=== PATIENT | male | born 1975 | race Caucasian/White ===

== ENCOUNTER 2017-08-05 07:29 | Emergency (ER) | payer SELFPAY ==
--- NOTE | 2017-08-05 08:03 | ER ---
Nurse's Notes [facility] Name: Grayson Liz Age: 41 yrs Sex: Male : 1975 Arrival Date: 08/05/2017 Time: 07:31 Bed 15 Private MD: Diagnosis: Acute Otitis Externa Presentation: 08/05 07:47 Presenting complaint: Patient states: has had cough X 1 month, and right ear has been iw leaking pus and blood for about 6 weeks, ear initially had pain but now denies pain, states he can't hear out of it. Transition of care: patient was not received from another setting of care. Onset of symptoms was June 2017. Initial Sepsis Screen: Does the patient meet any 2 criteria? No. Patient's initial sepsis screen is negative. Does the patient have a suspected source of infection? No. Patient's initial sepsis screen is negative. Care prior to arrival: None. 07:47 Method Of Arrival: Ambulatory iw 07:47 Acuity: LAURA 4 iw Historical: - Allergies: 07:50 NKA; iw - Home Meds: 07:50 Adderall XR Oral [Active]; iw - PMHx: 07:50 None; iw - PSHx: 07:50 None; iw - Immunization history:: Adult Immunizations up to date. - Social history:: Smoking status: Patient uses tobacco products, smokes one-half pack cigarettes per day. Screenin:40 Abuse screen: Denies threats or abuse. Nutritional screening: No deficits noted. em Tuberculosis screening: No symptoms or risk factors identified. Fall Risk None identified. Assessment: 08:00 General: Appears in no apparent distress. comfortable, Behavior is calm, cooperative. em Pain: Complains of pain in right ear Pain currently is 3 out of 10 on a pain scale. Neuro: Level of Consciousness is awake, alert, obeys commands, Oriented to person, place, time, situation. Cardiovascular: Capillary refill < 3 seconds Patient's skin is warm and dry. Respiratory: Airway is patent Respiratory effort is even, unlabored, Respiratory pattern is regular, symmetrical. GI: Abdomen is flat. : No signs and/or symptoms were reported regarding the genitourinary system. EENT: Ear canal clear on right ear. Derm: Skin is intact, Skin is pink, warm \T\ dry. Musculoskeletal: Range of motion: intact in all extremities. 08:20 Reassessment: Patient appears in no apparent distress at this time. I agree with above iw assessment by Akil Grant LVN. Vital Signs: 07:50 BP 133 / 99; Pulse 96; Resp 18 S; Temp 98.2; Pulse Ox 97% on R/A; Weight 81.65 kg; iw Height 5 ft. 10 in. (177.80 cm); Pain 2/10; 08:35 BP 122 / 81; Pulse 76; Resp 16; Temp 98.0; Pulse Ox 99% on R/A; Pain 2/10; em 07:50 Body Mass Index 25.83 (81.65 kg, 177.80 cm) iw ED Course: 07:31 Patient arrived in ED. rg4 07:42 Eliseo De Luna PA is PHCP. jr8 07:42 Viral Clarke MD is Attending Physician. jr8 07:43 Akil Grant LVN is Primary Nurse. em 07:49 Triage completed. iw 07:50 Arm band placed on. iw 08:00 Patient has correct armband on for positive identification. em 08:02 Xin Santiago MD is Referral Physician. jr8 08:40 No provider procedures requiring assistance completed. Patient did not have IV access em during this emergency room visit. Administered Medications: No medications were administered Outcome: 08:02 Discharge ordered by . jr8 08:40 Discharged to home ambulatory. em 08:40 Condition: good 08:40 Discharge instructions given to patient, Instructed on discharge instructions, follow up and referral plans. medication usage, Demonstrated understanding of instructions, follow-up care, medications, Prescriptions given X 1. 08:41 Patient left the ED. em Signatures: Akil Grant LVN LVN em Pat Barajas, RN RN iw Eliseo De Luna PA PA jrMirna Chinchilla rg4
--- NOTE | 2017-08-05 08:03 | EDPHYS ---
Physician Documentation [facility] Name: Grayson Liz Age: 41 yrs Sex: Male : 1975 Arrival Date: 08/05/2017 Time: 07:31 Bed 15 Private MD: ED Physician Viral Clarke HPI: 08/05 07:51 This 41 yrs old Male presents to ER via Ambulatory with complaints of Ear jr8 Pain. 07:51 The patient presents with drainage, that is purulent, pain, swelling, tenderness. The jr8 complaints affect the right ear. Onset: The symptoms/episode began/occurred gradually, 7 week(s) ago, and became worse and became persistent. Modifying factors: The symptoms are alleviated by nothing, the symptoms are aggravated by touching. Associated signs and symptoms: The patient has no apparent associated signs or symptoms. Severity of symptoms: At their worst the symptoms were mild in the emergency department the symptoms are unchanged. The patient has not experienced similar symptoms in the past. The patient has not recently seen a physician. Historical: - Allergies: 07:50 NKA; iw - Home Meds: 07:50 Adderall XR Oral [Active]; iw - PMHx: 07:50 None; iw - PSHx: 07:50 None; iw - Immunization history:: Adult Immunizations up to date. - Social history:: Smoking status: Patient uses tobacco products, smokes one-half pack cigarettes per day. ROS: 07:51 Eyes: Negative for injury, pain, redness, and discharge, Neck: Negative for injury, jr8 pain, and swelling, Cardiovascular: Negative for chest pain, palpitations, and edema, Respiratory: Negative for shortness of breath, cough, wheezing, and pleuritic chest pain, Abdomen/GI: Negative for abdominal pain, nausea, vomiting, diarrhea, and constipation, Back: Negative for injury and pain, MS/Extremity: Negative for injury and deformity, Skin: Negative for injury, rash, and discoloration, Neuro: Negative for headache, weakness, numbness, tingling, and seizure. 07:51 ENT: Positive for drainage from ear(s), ear pain. Exam: 07:51 Eyes: Pupils equal round and reactive to light, extra-ocular motions intact. Lids and jr8 lashes normal. Conjunctiva and sclera are non-icteric and not injected. Cornea within normal limits. Periorbital areas with no swelling, redness, or edema. Neck: Trachea midline, no thyromegaly or masses palpated, and no cervical lymphadenopathy. Supple, full range of motion without nuchal rigidity, or vertebral point tenderness. No Meningismus. Cardiovascular: Regular rate and rhythm with a normal S1 and S2. No gallops, murmurs, or rubs. Normal PMI, no JVD. No pulse deficits. Respiratory: Lungs have equal breath sounds bilaterally, clear to auscultation and percussion. No rales, rhonchi or wheezes noted. No increased work of breathing, no retractions or nasal flaring. Abdomen/GI: Soft, non-tender, with normal bowel sounds. No distension or tympany. No guarding or rebound. No evidence of tenderness throughout. Back: No spinal tenderness. No costovertebral tenderness. Full range of motion. Skin: Warm, dry with normal turgor. Normal color with no rashes, no lesions, and no evidence of cellulitis. MS/ Extremity: Pulses equal, no cyanosis. Neurovascular intact. Full, normal range of motion. Neuro: Awake and alert, GCS 15, oriented to person, place, time, and situation. Cranial nerves II-XII grossly intact. Motor strength 5/5 in all extremities. Sensory grossly intact. Cerebellar exam normal. Normal gait. 07:51 ENT: External ear(s): are unremarkable, Ear canal(s): purulent discharge, that is moderate, in the right canal, swelling, that is moderate, of the right canal, TM's: not visable, because of discharge, Examination of the other ear shows no obvious abnormality, Nose: External nose: no obvious acute abnormality, Nasal septum: is midline, Nasal mucosa: moist, Turbinates: are normal, Mouth: Lips: moist, Oral mucosa: pink and intact, moist, Gums: pink, Tongue: is moist, Posterior pharynx: Airway: patent, Tonsils: are normal in appearance, no enlargement, no erythema, no exudate, no ulcerations, Uvula: midline, non-edematous, no erythema, swelling, is not appreciated, erythema, is not appreciated. Vital Signs: 07:50 BP 133 / 99; Pulse 96; Resp 18 S; Temp 98.2; Pulse Ox 97% on R/A; Weight 81.65 kg; iw Height 5 ft. 10 in. (177.80 cm); Pain 2/10; 08:35 BP 122 / 81; Pulse 76; Resp 16; Temp 98.0; Pulse Ox 99% on R/A; Pain 2/10; em 07:50 Body Mass Index 25.83 (81.65 kg, 177.80 cm) iw MDM: 07:42 Patient medically screened. jr8 07:51 Data reviewed: vital signs, nurses notes, and as a result, I will discharge patient. jr8 Data interpreted: Pulse oximetry: on room air is 97 %. Interpretation: normal. Counseling: I had a detailed discussion with the patient and/or guardian regarding: the historical points, exam findings, and any diagnostic results supporting the discharge/admit diagnosis, the need for outpatient follow up, an ENT specialist, to return to the emergency department if symptoms worsen or persist or if there are any questions or concerns that arise at home. Administered Medications: No medications were administered Disposition: 08/05/17 08:02 Discharged to Home. Impression: Acute Otitis Externa . - Condition is Stable. - Discharge Instructions: Otitis Externa. - Prescriptions for Cortisporin 3.5- 10,000-1 mg/mL-unit/mL-% Otic solution - instill 4 drop by OTIC route 4 times per day for 7 days; 1 bottle. - Medication Reconciliation Form, Thank You Letter, Antibiotic Education, Prescription Opioid Use form. - Follow up: Xin Santiago MD; When: 1 week; Reason: Recheck today's complaints, Continuance of care, Re-evaluation by your physician. - Problem is new. - Symptoms have improved. Addendum: 08/07/2017 08:53 Co-signature as Attending Physician, Viral Clarke MD I agree with the assessment and c tirado plan of care. Signatures: Viral Clarke MD MD cha Munoz, Edgar, FINISH SPECIALIST FINISH SPECIALIST em Pat Barajas, ROHAN RN iw Eliseo De Luna PA PA jr8 Corrections: (The following items were deleted from the chart) 08/05 08:41 08:02 08/05/2017 08:02 Discharged to Home. Impression: Acute Otitis Externa . Condition em is Stable. Forms are Medication Reconciliation Form, Thank You Letter, Antibiotic Education, Prescription Opioid Use. Follow up: Xin Santiago; When: 1 week; Reason: Recheck today's complaints, Continuance of care, Re-evaluation by your physician. Problem is new. Symptoms have improved. jr8
== END 2017-08-05 08:41 | disposition home or self-care (01) ==
LOC: ER 07:29
DX: H60.509 Unspecified acute noninfective otitis externa, unspecified ear (principal); F17.210 Nicotine dependence, cigarettes, uncomplicated
CPT/HCPCS: 99282

== ENCOUNTER 2018-04-09 12:10 | Emergency (ER) | payer SELFPAY ==
[2018-04-09] MEDS ORDERED: BUPIVACAINE 0.5% PF 10 ML VIAL ONE (12:28)
[2018-04-09] MEDS ORDERED: LIDOCAINE 1% W/EPI 1:100,000 MDV 50 ML VIAL ONE (12:28)
--- NOTE | 2018-04-09 12:36 | EDPHYS ---
Physician Documentation [facility] Name: Grayson Liz Age: 42 yrs Sex: Male : 1975 Arrival Date: 04/09/2018 Time: 12:12 Bed 16 Private MD: None, None ED Physician Benny Wells HPI: 04/09 12:30 This 42 yrs old Male presents to ER via Ambulatory with complaints of dental ps1 pain. 12:30 patient has 2 fractured teeth on the right mandible. Atraumatic. Pain rated as moderate ps1 to severe. No abscess but some gingival swelling. No fever. Has not been able to see a dentist. . Historical: - Allergies: 12:15 NKA; hj - Home Meds: 12:15 Adderall XR Oral [Active]; hj - PMHx: 12:15 None; hj - PSHx: 12:15 None; hj - Immunization history:: Adult Immunizations not immunized. - Social history:: Smoking status: Patient uses tobacco products, Patient uses alcohol. - Ebola Screening: : Patient negative for fever greater than or equal to 101.5 degrees Fahrenheit, and additional compatible Ebola Virus Disease symptoms Patient denies exposure to infectious person Patient denies travel to an Ebola-affected area in the 21 days before illness onset. ROS: 12:30 Constitutional: Negative for fever, chills, and weight loss, Eyes: Negative for injury, ps1 pain, redness, and discharge, Cardiovascular: Negative for chest pain, palpitations, and edema, Respiratory: Negative for shortness of breath, cough, wheezing, and pleuritic chest pain, Abdomen/GI: Negative for abdominal pain, nausea, vomiting, diarrhea, and constipation, Back: Negative for injury and pain, MS/Extremity: Negative for injury and deformity, Skin: Negative for injury, rash, and discoloration, Neuro: Negative for headache, weakness, numbness, tingling, and seizure. 12:30 ENT: Positive for dental pain. Exam: 12:30 Constitutional: This is a well developed, well nourished patient who is awake, alert, ps1 and in no acute distress. Head/Face: Normocephalic, atraumatic. Eyes: Pupils equal round and reactive to light, extra-ocular motions intact. Lids and lashes normal. Conjunctiva and sclera are non-icteric and not injected. Cardiovascular: Regular rate and rhythm. No gallops, murmurs, or rubs. Normal PMI, no JVD. No pulse deficits. Respiratory: Lungs have equal breath sounds bilaterally, clear to auscultation and percussion. No rales, rhonchi or wheezes noted. No increased work of breathing, no retractions or nasal flaring. Abdomen/GI: Soft, non-tender, with normal bowel sounds. No distension or tympany. No guarding or rebound. No evidence of tenderness throughout. Skin: Warm, dry with normal turgor. Normal color with no rashes, no lesions, and no evidence of cellulitis. 12:30 ENT: Mouth: Lips: normal, Oral mucosa: pink and intact, Gums: reddened, swollen, on the lower right first bicuspid and lower right second bicuspid, abscess, is not appreciated. Vital Signs: 12:16 BP 142 / 80; Pulse 95; Resp 18; Temp 98.1(TE); Pulse Ox 100% on R/A; Weight 81.65 kg; hj Height 5 ft. 9 in. (175.26 cm); Pain 10/10; 12:52 BP 144 / 78; Pulse 88; Resp 17; Pulse Ox 100% on R/A; Pain 5/10; tw2 12:16 Body Mass Index 26.58 (81.65 kg, 175.26 cm) hj Procedures: 12:30 Nerve block: (dental) of right inferior alveolar nerve, periapical block, (lingual and ps1 long buccal). Medication: Lidocaine 1% with epinephrine, Marcaine 0.5%, Amount: 6 mls were injected, Effect: the patient has resolution of the pain, Performed by Benny Wells MD Patient tolerated well. MDM: 12:30 Patient medically screened. ps1 12:30 Data reviewed: vital signs, nurses notes, and as a result, I will discharge patient. ps1 Special discussion: Based on the presenting symptoms and work-up in the emergency department, I discussed in detail the need to arrange with the PCP or specialist an outpatient procedure, dental extraction. Based on the history and exam findings, there is no indication for further emergent testing or inpatient evaluation. I discussed with the patient/guardian the need to see a dentist for further evaluation of the symptoms. Administered Medications: 12:25 Drug: Marcaine (0.5 %) 1 mg Volume: 10 ml; Route: Infiltration; tw2 12:51 Follow up: Response: No adverse reaction tw2 12:25 Drug: Lidocaine-Epinephrine -1%: (1:100,000) 20 ml Volume: 20 ml; Route: Infiltration; tw2 12:52 Follow up: Response: No adverse reaction tw2 Disposition: 04/09/18 12:35 Discharged to Home. Impression: Periodontal disease, Dental pain, Fractured teeth. - Condition is Stable. - Discharge Instructions: Dental Caries, Adult. - Prescriptions for chlorhexidine gluconate 0.12 % Mucous Membrane mouthwash - place 15 milliliter by MUCOUS MEMBRANE route 2 times per day after brushing teeth, swish in mouth for 30 seconds then spit out; 1 bottle. Clindamycin HCl 300 mg Oral Capsule - take 1 capsule by ORAL route every 6 hours for 10 days; 40 capsule. Tylenol- Codeine #3 300-30 mg Oral Tablet - take 2 tablet by ORAL route every 6 hours As needed; 30 tablet. Zofran 4 mg Oral Tablet - take 1 tablet by ORAL route every 12 hours As needed; 20 tablet. - Work release form, Medication Reconciliation Form, Thank You Letter, Antibiotic Education, Prescription Opioid Use form. - Follow up: Private Physician; Reason: Further diagnostic work-up, Recheck today's complaints, Continuance of care, Re-evaluation by your physician. Follow up: Emergency Department; When: As needed; Reason: Fever > 102 F, Worsening of condition. - Problem is an ongoing problem. - Symptoms have worsened. Signatures: Brandon Boles RN RN hj Liliana Galvan RN RN tw2 Benny Wells MD MD ps1 Corrections: (The following items were deleted from the chart) 12:53 12:35 04/09/2018 12:35 Discharged to Home. Impression: Periodontal disease; Dental tw2 pain; Fractured teeth. Condition is Stable. Forms are Medication Reconciliation Form, Thank You Letter, Antibiotic Education, Prescription Opioid Use. Follow up: Private Physician; Reason: Further diagnostic work-up, Recheck today's complaints, Continuance of care, Re-evaluation by your physician. Follow up: Emergency Department; When: As needed; Reason: Fever > 102 F, Worsening of condition. Problem is an ongoing problem. Symptoms have worsened. ps1
--- NOTE | 2018-04-09 12:36 | ER ---
Nurse's Notes [facility] Name: Grayson Liz Age: 42 yrs Sex: Male : 1975 Arrival Date: 04/09/2018 Time: 12:12 Bed 16 Private MD: None, None Diagnosis: Periodontal disease;Dental pain;Fractured teeth Presentation: 04/09 12:13 Presenting complaint: Patient states: i had 3 weeks of tooth ache and tooth came out hj (tooth R bottom part), and the swelling started 2 weeks ago; took ibuprofen an hour [employer]:. Transition of care: patient was not received from another setting of care. Onset of symptoms was April 09, 2018. Risk Assessment: Do you want to hurt yourself or someone else? Patient reports no desire to harm self or others. Initial Sepsis Screen: Does the patient meet any 2 criteria? No. Patient's initial sepsis screen is negative. Does the patient have a suspected source of infection? Yes:. Care prior to arrival: None. 12:13 Method Of Arrival: Ambulatory 12:13 Acuity: LAURA 4 hj Triage Assessment: 12:15 General: Appears in no apparent distress. uncomfortable, Behavior is calm, cooperative, hj appropriate for age. Pain: Complains of pain in ttoth, face. Historical: - Allergies: 12:15 NKA; hj - Home Meds: 12:15 Adderall XR Oral [Active]; hj - PMHx: 12:15 None; hj - PSHx: 12:15 None; hj - Immunization history:: Adult Immunizations not immunized. - Social history:: Smoking status: Patient uses tobacco products, Patient uses alcohol. - Ebola Screening: : Patient negative for fever greater than or equal to 101.5 degrees Fahrenheit, and additional compatible Ebola Virus Disease symptoms Patient denies exposure to infectious person Patient denies travel to an Ebola-affected area in the 21 days before illness onset. Screenin:16 Abuse screen: Denies threats or abuse. Denies injuries from another. Nutritional hj screening: No deficits noted. Tuberculosis screening: No symptoms or risk factors identified. Fall Risk None identified. Assessment: 12:15 General: Appears in no apparent distress. Behavior is appropriate for age. Neuro: Level tw2 of Consciousness is awake, alert, obeys commands, Oriented to person, place, time, situation. Cardiovascular: Capillary refill < 3 seconds Patient's skin is warm and dry. Respiratory: Airway is patent Respiratory effort is even, unlabored, Respiratory pattern is regular, symmetrical. GI: No signs and/or symptoms were reported involving the gastrointestinal system. : No signs and/or symptoms were reported regarding the genitourinary system. EENT: Reports dental pain. Musculoskeletal: Range of motion: intact in all extremities. 12:52 Reassessment: Patient appears in no apparent distress at this time. Patient and/or tw2 family updated on plan of care and expected duration. Pain level reassessed. Patient is alert, oriented x 3, equal unlabored respirations, skin warm/dry/pink. Patient states feeling better. Vital Signs: 12:16 BP 142 / 80; Pulse 95; Resp 18; Temp 98.1(TE); Pulse Ox 100% on R/A; Weight 81.65 kg; hj Height 5 ft. 9 in. (175.26 cm); Pain 10/10; 12:52 BP 144 / 78; Pulse 88; Resp 17; Pulse Ox 100% on R/A; Pain 5/10; tw2 12:16 Body Mass Index 26.58 (81.65 kg, 175.26 cm) ED Course: 12:12 Patient arrived in ED. mr 12:12 None, None is Private Physician. mr 12:13 Benny Wells MD is Attending Physician. ps1 12:15 Triage completed. hj 12:16 Arm band placed on right wrist. hj 12:16 Patient has correct armband on for positive identification. Bed in low position. Call hj light in reach. Side rails up X 1. 12:25 No provider procedures requiring assistance completed. Patient did not have IV access tw2 during this emergency room visit. 12:34 Liliana Galvan, RN is Primary Nurse. tw2 Administered Medications: 12:25 Drug: Marcaine (0.5 %) 1 mg Volume: 10 ml; Route: Infiltration; tw2 12:51 Follow up: Response: No adverse reaction tw2 12:25 Drug: Lidocaine-Epinephrine -1%: (1:100,000) 20 ml Volume: 20 ml; Route: Infiltration; tw2 12:52 Follow up: Response: No adverse reaction tw2 Outcome: 12:35 Discharge ordered by . ps1 12:53 Discharged to home ambulatory. tw2 12:53 Condition: stable 12:53 Discharge instructions given to patient, Instructed on discharge instructions, follow up and referral plans. no drinking with medication, no driving heavy equipment, medication usage, Demonstrated understanding of instructions, follow-up care, medications, Prescriptions given X 4. 12:53 Patient left the ED. tw2 Signatures: Capo Monse BolesBrandon RN RN hj Liliana Galvan RN RN tw2 Benny Wells MD MD ps1 Corrections: (The following items were deleted from the chart) 12:17 12:16 Pulse 95bpm; Resp 18bpm; Pulse Ox 100% RA; Temp 98.1F Temporal; 81.65 kg; Height hj 5 ft. 9 in.; BMI: 26.5; Pain 10/10; hj
== END 2018-04-09 12:53 | disposition home or self-care (01) ==
LOC: ER 12:10
PROC: 3E0T3BZ Introduction of Anesthetic Agent into Peripheral Nerves and Plexi, Percutaneous Approach (ICD-10-PCS; principal; 2018-04-09)
DX: K05.6 Periodontal disease, unspecified (principal); S02.5XXA Fracture of tooth (traumatic), initial encounter for closed fracture; Z72.0 Tobacco use
CPT/HCPCS: 99283

== ENCOUNTER 2018-08-22 08:43 | Inpatient (IN) | payer SELFPAY ==
--- NOTE | 2018-08-22 09:27 | RAD REPORT ---
EXAM DESCRIPTION: RAD - Chest Single View - 08/22/2018 9:16 am CLINICAL HISTORY: MD nuñez Chest pain. COMPARISON: No comparisons FINDINGS: Portable technique limits examination quality. The lungs appear mildly emphysematous but clear. The heart is normal in size. No displaced fractures. IMPRESSION: Mild COPD.
[2018-08-22] MEDS ORDERED: ONDANSETRON 4 MG/2 ML VIAL ONE (09:33)
[2018-08-22 09:34] LABS: Absolute Lymphocytes (CBC) 1.1 K/uL (0.7-4.9); Absolute Monocytes 0.9 K/uL (0.1-1.3); Absolute Neutrophil 19.1 K/uL (1.8-8.0); Basophils % 0.2 % (0-1.3); Hematocrit 57.6 % (39.6-49.0); Lymphocytes % 5.2 % (15.3-44.8); MPV 7.6 fL (7.6-11.3); Monocytes % 4.4 % (3.3-12.3); RBC Red Blood Cell Count 6.42 M/uL (4.33-5.43)
[2018-08-22] MEDS ORDERED: NA CHLORIDE 0.9% 2,000 ML ONE ×2 (09:34→10:45)
[2018-08-22 09:42] LABS: Protime INR 0.99
[2018-08-22 10:08] LABS: ALT/SGPT 32 U/L (12-78); AST/SGOT 19 U/L (15-37); Albumin 5.7 g/dL (3.4-5.0); Alkaline Phosphatase 124 U/L (45-117); BUN Blood Urea Nitrogen 51 mg/dL (7-18); Bicarbonate 31 mmol/L (21-32); Bilirubin Direct 0.1 mg/dL (0-0.2); Bilirubin Total 0.5 mg/dL (0.2-1.0); Blood Morphology Comment NOT SEEN (NOT SEEN); Glucose Level 162 mg/dL (74-106); NT PRO-BNP 191 pg/mL (<125); Platelet Estimate ADEQ; Potassium 4.1 mmol/L (3.5-5.1); Sodium Level 138 mmol/L (136-145); Troponin (Emerg Dept Use Only) < 0.02 ng/mL (0.0-0.045)
[2018-08-22 10:13] LABS: Magnesium 3.6 mg/dL (1.8-2.4)
--- NOTE | 2018-08-22 10:31 | EDPHYS ---
Physician Documentation [facility] Name: Grayson Liz Age: 42 yrs Sex: Male : 1975 Arrival Date: 08/22/2018 Time: 08:45 Bed 14 Private MD: None, None ED Physician Viral Clarke HPI: 08/22 09:27 This 42 yrs old Male presents to ER via Ambulatory with complaints of sumeet Vomiting, Muscle spasms. 09:27 The patient presents to the emergency department with nausea, vomiting, that is sumeet continuous. Onset: The symptoms/episode began/occurred 2 day(s) ago. Possible causes: unknown. The symptoms are aggravated by nothing. The symptoms are alleviated by nothing. Associated signs and symptoms: The patient has no apparent associated signs or symptoms. The patient has not experienced similar symptoms in the past. Historical: - Allergies: 08:55 NKA; aa5 - Home Meds: 08:55 Adderall XR Oral [Active]; aa5 - PMHx: 08:55 ADD/ADHD; aa5 - PSHx: 08:55 Hernia repair; Tonsillectomy; aa5 - Immunization history:: Adult Immunizations up to date. - Social history:: Smoking status: Patient uses tobacco products, smokes one-half pack cigarettes per day. - Ebola Screening: : No symptoms or risks identified at this time. ROS: 09:29 Constitutional: Negative for fever, chills, and weight loss, Eyes: Negative for injury, sumeet pain, redness, and discharge, ENT: Negative for injury, pain, and discharge, Neck: Negative for injury, pain, and swelling, Cardiovascular: Negative for chest pain, palpitations, and edema, Respiratory: Negative for shortness of breath, cough, wheezing, and pleuritic chest pain, Back: Negative for injury and pain, : Negative for injury, bleeding, discharge, and swelling, MS/Extremity: Negative for injury and deformity, Skin: Negative for injury, rash, and discoloration, Neuro: Negative for headache, weakness, numbness, tingling, and seizure, Psych: Negative for depression, anxiety, suicide ideation, homicidal ideation, and hallucinations, Allergy/Immunology: Negative for hives, rash, and allergies, Endocrine: Negative for neck swelling, polydipsia, polyuria, polyphagia, and marked weight changes, Hematologic/Lymphatic: Negative for swollen nodes, abnormal bleeding, and unusual bruising. 09:29 Abdomen/GI: Positive for nausea and vomiting. Exam: 09:29 Constitutional: This is a well developed, well nourished patient who is awake, alert, sumeet and in no acute distress. Head/Face: Normocephalic, atraumatic. Eyes: Pupils equal round and reactive to light, extra-ocular motions intact. Lids and lashes normal. Conjunctiva and sclera are non-icteric and not injected. Cornea within normal limits. Periorbital areas with no swelling, redness, or edema. Neck: Trachea midline, no thyromegaly or masses palpated, and no cervical lymphadenopathy. Supple, full range of motion without nuchal rigidity, or vertebral point tenderness. No Meningismus. Chest/axilla: Normal chest wall appearance and motion. Nontender with no deformity. No lesions are appreciated. Cardiovascular: Regular rate and rhythm with a normal S1 and S2. No gallops, murmurs, or rubs. Normal PMI, no JVD. No pulse deficits. Respiratory: Lungs have equal breath sounds bilaterally, clear to auscultation and percussion. No rales, rhonchi or wheezes noted. No increased work of breathing, no retractions or nasal flaring. Abdomen/GI: Soft, non-tender, with normal bowel sounds. No distension or tympany. No guarding or rebound. No evidence of tenderness throughout. Back: No spinal tenderness. No costovertebral tenderness. Full range of motion. Male : Normal genitalia with no discharge or lesions. Skin: Warm, dry with normal turgor. Normal color with no rashes, no lesions, and no evidence of cellulitis. 09:29 ENT: Mouth: Oral mucosa: dry, Gums: normal with healthy appearance, Tongue: is normal, abscess, is not appreciated, drooling, is not appreciated. Vital Signs: 08:55 BP 125 / 94; Pulse 98; Resp 18 S; Temp 97.8(O); Pulse Ox 96% on R/A; Weight 79.38 kg aa5 (R); Height 5 ft. 11 in. (180.34 cm) (R); Pain 6/10; 10:12 BP 135 / 81; Pulse 78; Resp 18 S; Pulse Ox 96% on R/A; aa5 11:30 BP 111 / 78; Pulse 80; Resp 16 S; Pulse Ox 96% on R/A; Pain 3/10; aa5 08:55 Body Mass Index 24.41 (79.38 kg, 180.34 cm) [facility] MDM: 08:59 Patient medically screened. [facility] 09:32 Data reviewed: vital signs, nurses notes, lab test result(s), EKG, radiologic studies. [facility] 08/22 09:02 Order name: Basic Metabolic Panel; Complete Time: 10:15 [facility] 08/22 09:02 Order name: CBC with Diff; Complete Time: 10:13 [facility] 08/22 09:02 Order name: LFT's; Complete Time: 10:15 [facility] 08/22 09:02 Order name: Magnesium; Complete Time: 10:15 [facility] 08/22 09:02 Order name: NT PRO-BNP; Complete Time: 10:15 [facility] 08/22 09:02 Order name: PT-INR; Complete Time: 10:13 [facility] 08/22 09:02 Order name: Troponin (emerg Dept Use Only); Complete Time: 10:15 [facility] 08/22 09:02 Order name: XRAY Chest (1 view); Complete Time: 10:13 [facility] 08/22 09:43 Order name: Manual Differential; Complete Time: 10:13 [facility]MS 08/22 10:15 Order name: Blood Culture Adult (2) [facility] 08/22 10:15 Order name: Procalcitonin [facility] 08/22 10:21 Order name: CPK [facility] 08/22 10:21 Order name: Ckmb [facility] 08/22 09:02 Order name: EKG; Complete Time: 09:02 [facility] 08/22 09:02 Order name: Cardiac monitoring; Complete Time: 09:12 [facility] 08/22 09:02 Order name: EKG - Nurse/Tech; Complete Time: 09:12 [facility] 08/22 09:02 Order name: IV Saline Lock; Complete Time: 09:12 [facility] 08/22 09:02 Order name: Labs collected and sent; Complete Time: 09:12 08/22 09:02 Order name: O2 Per Protocol; Complete Time: 09:12 [facility] 08/22 09:02 Order name: O2 Sat Monitoring; Complete Time: 09:12 [facility] 08/22 09:27 Order name: Urine Dipstick-Ancillary (obtain specimen); Complete Time: 11:23 [facility] 08/22 10:38 Order name: Renal Ultrasound-Complete [facility] 08/22 11:07 Order name: Diet Regular; Complete Time: 11:08 5 Administered Medications: 09:18 Drug: NS 0.9% 1000 ml Route: IV; Rate: 1000 ml; Site: right forearm; aa5 10:55 Follow up: IV Status: Completed infusion [facility] 09:18 Drug: Zofran 4 mg Route: IVP; Site: right forearm; aa5 09:28 Follow up: Response: No adverse reaction [facility] 09:28 Drug: NS 0.9% 1000 ml Route: IV; Rate: 1 bolus; Site: right forearm; aa5 12:09 Follow up: IV Status: Completed infusion [facility] 10:55 Drug: NS 0.9% 1000 ml Route: IV; Rate: 1 bolus; Site: right forearm; aa5 12:08 Follow up: IV Status: Completed infusion [facility] 11:06 Drug: NS 0.9% 1000 ml Route: IV; Rate: 125 ml/hr; Site: right forearm; aa5 12:08 Follow up: IV Status: Infusion continued upon admission [facility] 11:07 Drug: Rocephin - (cefTRIAXone) 1 grams {Note: administered slow IVP per pharmacy at [facility] this time .} Route: IVPB; Infused Over: 30 mins; Site: right forearm; 11:30 Follow up: Response: No adverse reaction [facility] Disposition: 08/22/18 10:30 Hospitalization ordered by Jethro Mccullough for Inpatient Admission. Preliminary diagnosis are Vomiting, Acute kidney failure, Heat exhaustion, unspecified, Elevated white blood cell count. - Bed requested for Telemetry/MedSurg (Inpatient). - Status is Inpatient Admission. mg2 - Condition is Fair. - Problem is new. - Symptoms have improved. UTI on Admission? No Signatures: Dispatcher [employer] MIRANDASD Lucila Poe Corey, MD MD cha Calderon, Audri, RN RN [facility] Torsten Scherer, ROHAN RN mg2 Corrections: (The following items were deleted from the chart) 10:37 10:30 [employer][id number].RAD.BRZ ordered. [facility] 11:08 08:55 Home Meds: None; aa5 aa 11:08 08:55 PMHx: None; aa5 aa5 11:48 10:30 Hospitalization Ordered by Jethro Mccullough DO for Inpatient Admission. Preliminary bd diagnosis is Vomiting; Acute kidney failure; Heat exhaustion, unspecified; Elevated white blood cell count. Bed requested for Telemetry/MedSurg (Inpatient). Status is Inpatient Admission. Condition is Fair. Problem is new. Symptoms have improved. UTI on Admission? No. sumeet 13:01 11:48 08/22/2018 10:30 Hospitalization Ordered by Jethro Mccullough DO for Inpatient mg2 Admission. Preliminary diagnosis is Vomiting; Acute kidney failure; Heat exhaustion, unspecified; Elevated white blood cell count. Bed requested for Telemetry/MedSurg (Inpatient). Status is Inpatient Admission. Condition is Fair. Problem is new. Symptoms have improved. UTI on Admission? No. bd
--- NOTE | 2018-08-22 10:31 | ER ---
Nurse's Notes [facility] Name: Grayson Liz Age: 42 yrs Sex: Male : 1975 Arrival Date: 08/22/2018 Time: 08:45 Bed 14 Private MD: None, None Diagnosis: Vomiting;Acute kidney failure;Heat exhaustion, unspecified;Elevated white blood cell count Presentation: 08/22 08:50 Presenting complaint: Patient states: "My whole body is cramping and I've been vomiting aa5 every hour since 6 am today". Pt also reports syncopal episode yesterday. 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 08:50 Transition of care: patient was not received from another setting of care. Onset of aa5 symptoms was August 22, 2018. Risk Assessment: Do you want to hurt yourself or someone else? Patient reports no desire to harm self or others. Initial Sepsis Screen: Does the patient meet any 2 criteria? No. Patient's initial sepsis screen is negative. Does the patient have a suspected source of infection? No. Patient's initial sepsis screen is negative. Care prior to arrival: None. 08:50 Method Of Arrival: Ambulatory aa5 08:50 Acuity: LAURA 3 aa5 Historical: - Allergies: 08:55 NKA; aa5 - Home Meds: 08:55 Adderall XR Oral [Active]; aa5 - PMHx: 08:55 ADD/ADHD; aa5 - PSHx: 08:55 Hernia repair; Tonsillectomy; aa5 - Immunization history:: Adult Immunizations up to date. - Social history:: Smoking status: Patient uses tobacco products, smokes one-half pack cigarettes per day. - Ebola Screening: : No symptoms or risks identified at this time. Screenin:00 Abuse screen: Denies threats or abuse. Nutritional screening: No deficits noted. aa5 Tuberculosis screening: No symptoms or risk factors identified. Fall Risk None identified. Assessment: 09:00 General: Appears uncomfortable, Behavior is calm, cooperative. Pain: Complains of pain aa5 in whole body Pain currently is 6 out of 10 on a pain scale. Quality of pain is described as crampy, Pain began 1 day ago. Is continuous. Neuro: Level of Consciousness is awake, alert, obeys commands, Oriented to person, place, time, situation. Cardiovascular: Heart tones S1 S2 present Rhythm is sinus rhythm. Respiratory: Reports chronic cough Airway is patent Respiratory effort is even, unlabored, Respiratory pattern is regular, symmetrical. GI: Abdomen is flat, Bowel sounds present X 4 quads. Abd is soft and non tender X 4 quads. Reports nausea, vomiting. : Reports decreased urination. EENT: No signs and/or symptoms were reported regarding the EENT system. Derm: Skin is pink, warm \\T\\ dry. Musculoskeletal: Range of motion: intact in all extremities. 10:40 Reassessment: Patient is alert, oriented x 3, equal unlabored respirations, skin aa5 warm/dry/pink. Patient states feeling better. Pt states "I still haven't been able to pee". . Pain: Pain currently is 5 out of 10 on a pain scale. 10:45 Reassessment: Dr. Mccullough (Hospitalist) at bedside . aa5 10:55 Reassessment: Pt taken to US. aa5 11:20 Reassessment: Patient is alert, oriented x 3, equal unlabored respirations, skin aa5 warm/dry/pink. Awaiting room assignment. . 11:20 Reassessment: Pt drank 2 cups of water and tolerated well at 1100. No vomiting noted aa5 since then. Vital Signs: 08:55 BP 125 / 94; Pulse 98; Resp 18 S; Temp 97.8(O); Pulse Ox 96% on R/A; Weight 79.38 kg aa5 (R); Height 5 ft. 11 in. (180.34 cm) (R); Pain 6/10; 10:12 BP 135 / 81; Pulse 78; Resp 18 S; Pulse Ox 96% on R/A; aa5 11:30 BP 111 / 78; Pulse 80; Resp 16 S; Pulse Ox 96% on R/A; Pain 3/10; aa5 08:55 Body Mass Index 24.41 (79.38 kg, 180.34 cm) aa5 ED Course: 08:45 Patient arrived in ED. mr 08:46 None, None is Private Physician. mr 08:50 Arm band placed on Patient placed in an exam room, on a stretcher. aa5 08:50 Patient has correct armband on for positive identification. Bed in low position. Call aa5 light in reach. Side rails up X 1. 08:59 Viral Clarke MD is Attending Physician. sumeet 09:01 Charlene Main, RN is Primary Nurse. aa5 09:10 Triage completed. aa5 09:10 Initial lab(s) drawn, by me, sent to lab. Inserted saline lock: 18 gauge in right dh3 forearm, using aseptic technique. Blood collected. 09:16 XRAY Chest (1 view) In Process Unspecified. EDMS 09:32 EKG done, by technical service engineer. reviewed by Viral Clarke MD. at1 10:14 No provider procedures requiring assistance completed. aa5 10:29 Jethro Mccullough DO is Hospitalizing Provider. sumeet 10:43 First set of blood cultures drawn by me. aa5 10:54 Second set of blood cultures drawn by me. aa5 11:06 Renal Ultrasound-Complete In Process Unspecified. EDMS 12:44 Patient admitted, IV remains in place. mg2 Administered Medications: 09:18 Drug: NS 0.9% 1000 ml Route: IV; Rate: 1000 ml; Site: right forearm; aa5 10:55 Follow up: IV Status: Completed infusion aa5 09:18 Drug: Zofran 4 mg Route: IVP; Site: right forearm; aa5 09:28 Follow up: Response: No adverse reaction aa5 09:28 Drug: NS 0.9% 1000 ml Route: IV; Rate: 1 bolus; Site: right forearm; aa5 12:09 Follow up: IV Status: Completed infusion aa5 10:55 Drug: NS 0.9% 1000 ml Route: IV; Rate: 1 bolus; Site: right forearm; aa5 12:08 Follow up: IV Status: Completed infusion aa5 11:06 Drug: NS 0.9% 1000 ml Route: IV; Rate: 125 ml/hr; Site: right forearm; aa5 12:08 Follow up: IV Status: Infusion continued upon admission aa5 11:07 Drug: Rocephin - (cefTRIAXone) 1 grams {Note: administered slow IVP per pharmacy at [facility] this time .} Route: IVPB; Infused Over: 30 mins; Site: right forearm; 11:30 Follow up: Response: No adverse reaction aa5 Intake: 11:15 Lisseth colored urine aa5 Output: 11:15 Urine: 250ml (Voided); Total: 250ml. aa5 11:15 Lisseth colored urine aa5 Outcome: 10:30 Decision to Hospitalize by Provider. sumeet 12:44 Admitted to Med/surg accompanied by tech, via wheelchair, room 206, with chart, Report mg2 called to ROHAN Beard 12:44 Condition: stable 12:44 Instructed on the need for admit, Demonstrated understanding of instructions. 13:01 Patient left the ED. mg2 Signatures: Dispatcher [employer] EDMS Viral Clarke MD MD cha Rivera, Monse MainCharlene smith, RN RN aa5 Laura Bernal, automobile taillight assembler EKG Tat1 Jessica Santiago dh3 Torsten Scherer RN RN mg2 Corrections: (The following items were deleted from the chart) 11:07 11:06 NS 0.9% 1000 ml IV at 125 ml/hr in left hand aa5 aa5 11:08 08:55 Home Meds: None; aa5 aa5 11:08 08:55 PMHx: None; aa5 aa5 12:08 11:07 Rocephin - (cefTRIAXone) 1 grams IVPB in right forearm over 30 mins aa5 aa5
[2018-08-22] MEDS ORDERED: CEFTRIAXONE/SWI 1gm 1 GM/10 ML SYR ONE (11:11)
--- NOTE | 2018-08-22 11:27 | RAD REPORT ---
EXAM DESCRIPTION: US - Renal Ultrasound-Complete - 08/22/2018 11:06 am CLINICAL HISTORY: PAIN Flank pain COMPARISON: No comparisons FINDINGS: Both kidneys are normal in size, shape and echotexture. The right kidney measures 12.1 x 5.4 x 4.9 cm. No hydronephrosis, focal mass or perinephric fluid. The left kidney measures 12.5 x 6.9 x 5.2 cm. No hydronephrosis, focal mass or perinephric fluid. The urinary bladder is incompletely distended without gross abnormality seen. IMPRESSION: Unremarkable renal sonogram.
[2018-08-22 11:33] LABS: CKMB Creatine Kinase MB 5.2 ng/mL (0.3-3.6)
--- NOTE | 2018-08-22 11:54 | P.HP ---
Certification for Inpatient Patient admitted to: Inpatient With expected LOS: >2 Midnights Patient will require the following post-hospital care: None Practitioner: I am a practitioner with admitting privileges, knowledge of patient current condition, hospital course, and medical plan of care. Services: Services provided to patient in accordance with Admission requirements found in Title 42 Section 412.3 of the Code of Federal Regulations Patient History Date of Service: 08/22/18 Primary Care Provider: None; PSFARNAZ-Dr. Jarquin([place]) Reason for admission: Fatigue, heat exhaustion History of Present Illness: 42-year-old male presented to the emergency room with increased fatigue and heat exhaustion. Patient reports that he was working all day yesterday. He started to feel extremely tired. He had been sweating all day then he noted that this stopped. He reported increase cramping to the muscles. He stop working for while try to rehydrate then went back to work. At the end of his shift he had more fatigue. He went home trying to hydrate himself with Pedialyte and Gatorade. This was not successful as the patient had increased nausea and vomiting. This continued to persist this morning. Patient came to the ER for further evaluation. In the ER patient evaluated. Patient appeared dehydrated. Patient received 3 L of fluid in the ER. White count 21.3, hemoglobin 19.5. Sodium 138, potassium 4.1, BUN of 51, creatinine 3.5 with a GFR of 19. Glucose 162. Chest x- ray showed possible COPD changes. Renal ultrasound negative. Patient was admitted for further treatment of heat exhaustion and acute renal failure. When I saw the patient ER, he appeared improved but still dehydrated. Patient reports a history of ADD and currently takes Adderall. Patient reported smoking and alcohol use. He had been drinking over the holiday. He thinks the combination of work and drinking caused him to be dehydrated. Allergies No Known Allergies Allergy (Unverified 08/05/17 08:45) Home medications list reviewed: Yes - Past Medical/Surgical History Diabetic: No -: Adult ADD -: Tobacco abuse -: Alcohol use -: Hernia repair -: Tonsillectomy Psychosocial/ Personal History: Patient is . He has 1 child. He works with insulation at [employer] - Family History Father -: Cancer (Lung cancer) Mother -: Cancer (Liver cancer) - Social History Smoking Status: Light Tobacco smoker (1-9 cigarettes/day) Counseled patient to stop smoking for: less than 10 minutes Smoking therapy provided: Yes Patient receptive to therapy: Yes Alcohol use: Yes CD- Drugs: No Caffeine use: Yes Place of Residence: Home Review of Systems General: Sweats, Weakness, As per HPI Eyes: Unremarkable ENT: Unremarkable Respiratory: Dry, As per HPI Cardiovascular: Unremarkable Gastrointestinal: Nausea, Vomiting, As per HPI Genitourinary: Unremarkable Musculoskeletal: As per HPI Integumentary: Unremarkable Neurological: As per HPI Lymphatics: Unremarkable Physical Examination - Physical Exam General: Alert, In no apparent distress, Oriented x3, Cooperative HEENT: Atraumatic, Normocephalic, PERRLA, Other (Dry mucous membranes) Neck: Supple, No Thyromegaly Respiratory: Clear to auscultation bilaterally, Normal air movement Cardiovascular: Normal pulses, Regular rate/rhythm Gastrointestinal: Normal bowel sounds, Soft and benign, Non-distended, No tenderness, No masses, No rebound, No guarding Musculoskeletal: No erythema, No tenderness, No warmth Integumentary: No tenderness/swelling, No erythema, No warmth, No cyanosis Neurological: Normal speech, Normal strength at 5/5 x4 extr, Normal tone, Normal affect - Studies Laboratory Data (last 24 hrs) 08/22/18 09:10: PT 11.7, INR 0.99 08/22/18 09:10: WBC 21.2 H*, Hgb 19.5 H, Hct 57.6 H, Plt Count 399 08/22/18 09:10: Sodium 138, Potassium 4.1, BUN 51 H, Creatinine 3.51 H, Glucose 162 H, Magnesium 3.6 H*, Total Bilirubin 0.5, AST 19, ALT 32, Alkaline Phosphatase 124 H Assessment and Plan - Plan Impression: Acute renal failure secondary to heat exhaustion Nausea, vomiting with cramping secondary to above Tobacco abuse Alcohol use Adult ADD Plan: Acute renal failure secondary to heat exhaustion: Patient came in with severe dehydration related to heat exhaustion. Acute renal failure noted. Patient has received 3 L of fluids. Will continue with aggressive IV fluids. Patient desires to leave later tonight. He plans to go back to work as early as tomorrow. I told him that he may require further hospitalization to make sure his renal function and hydration status is appropriate for discharge. I will recheck lab later tonight. I encouraged him that he should take time off to fully recover after discharge. I will have the automation driver reassess and determine if the patient can be discharged later tonight. Otherwise will continue to monitor closely. Nausea, vomiting with cramping secondary to above: Continue as above. Will monitor closely. Tobacco abuse: Will provide nicotine patch. Alcohol use: Will address alcohol cessation education. Adult ADD: Will hold off on restarting his medication-Adderral at this time. Patient sees Psychiatry for this issue. Discharge Plan: Home Plan to discharge in: 48 Hours - Advance Directives Does patient have a Living Will: No Does patient have a Durable POA for Healthcare: No - Code Status/Comfort Care Code Status Assessed: Yes (Patient full code.) Time Spent Managing Pts Care (In Minutes): 55
[2018-08-22] MEDS ORDERED: NA CHLORIDE 0.9% 1,000 ML IV SCH (12:47)
[2018-08-22] MEDS ORDERED: ACETAMINOPHEN 500 MG TAB PO PRN (12:47)
[2018-08-22] MEDS ORDERED: ONDANSETRON 4 MG/2 ML VIAL IV PRN (12:47)
[2018-08-22 17:12] LABS: Urine Appearance CLEAR; Urine Bilirubin NEGATIVE (NEG); Urine Blood NEGATIVE (NEG); Urine Color YELLOW; Urine Glucose NEGATIVE (NEG); Urine Protein NEGATIVE (NEG); Urine Urobilinogen 0.2 mg/dL (0.2-1.0); Urine pH 5.5 (5.0-7.0)
[2018-08-22 17:38] LABS: Urine Microscopic Reflex NO UMIC
[2018-08-22 17:50] LABS: Barbiturates NEGATIVE (NEGATIVE); Benzodiazepines NEGATIVE (NEGATIVE); Cocaine NEGATIVE (NEGATIVE); METHAMPHETAM POSITIVE (NEGATIVE); Methadone NEGATIVE (NEGATIVE); Opiates NEGATIVE (NEGATIVE); Phencyclidine NEGATIVE (NEGATIVE); THC Cannibis NEGATIVE (NEGATIVE)
[2018-08-22 18:55] LABS: Absolute Lymphocytes (CBC) 2.5 K/uL (0.7-4.9); Absolute Monocytes 1.5 K/uL (0.1-1.3); Absolute Neutrophil 14.4 K/uL (1.8-8.0); Basophils % 0.5 % (0-1.3); Eosinophils % 0.4 % (0-4.4); Hematocrit 46.8 % (39.6-49.0); Lymphocytes % 13.4 % (15.3-44.8); MPV 7.2 fL (7.6-11.3); Monocytes % 8.2 % (3.3-12.3); RBC Red Blood Cell Count 5.16 M/uL (4.33-5.43)
--- NOTE | 2018-08-23 05:35 | P.DS ---
Admission Date: 08/22/18 Discharge Date: 08/23/18 Primary Care Provider: None; PSYC-Dr. Jarquin([place]) Disposition: ROUTINE DISCHARGE Reason for Admission: Fatigue, heat exhaustion Brief History of Present Illness: By Dr Mccullough: 42-year-old male presented to the emergency room with increased fatigue and heat exhaustion. Patient reports that he was working all day yesterday. He started to feel extremely tired. He had been sweating all day then he noted that this stopped. He reported increase cramping to the muscles. He stop working for while try to rehydrate then went back to work. At the end of his shift he had more fatigue. He went home trying to hydrate himself with Pedialyte and Gatorade. This was not successful as the patient had increased nausea and vomiting. This continued to persist this morning. Patient came to the ER for further evaluation. In the ER patient evaluated. Patient appeared dehydrated. Patient received 3 L of fluid in the ER. White count 21.3, hemoglobin 19.5. Sodium 138, potassium 4.1, BUN of 51, creatinine 3.5 with a GFR of 19. Glucose 162. Chest x- ray showed possible COPD changes. Renal ultrasound negative. Patient was admitted for further treatment of heat exhaustion and acute renal failure. When I saw the patient ER, he appeared improved but still dehydrated. Patient reports a history of ADD and currently takes Adderall. Patient reported smoking and alcohol use. He had been drinking over the holiday. He thinks the combination of work and drinking caused him to be dehydrated. Hospital Course: The patient was admitted to the hospital due to hit exhaustion. He was symptomatic for muscle cramps, nausea, vomiting and extremely tiredness. Lab work was consistent with acute renal injury due to severe dehydration. During his stay, he received aggressive fluid replacement. Creatinine level dramatically improved, his symptoms resolved. The patient improved sooner than expected. He was eager to go home. Then, he was discharged home in stable condition. He was advised to come back to ED if symptoms get worse. Vital Signs/Physical Exam: Temp Pulse Resp BP Pulse Ox 98.6 F 93 H 18 124/63 94 08/23/18 00:00 08/23/18 00:00 08/23/18 00:00 08/23/18 00:00 08/23/18 00:00 General: Alert, In no apparent distress Respiratory: Clear to auscultation bilaterally, Normal air movement Cardiovascular: Regular rate/rhythm, Normal S1 S2 Gastrointestinal: Normal bowel sounds, No tenderness Neurological: Normal speech, Normal tone, Normal affect Laboratory Data at Discharge: WBC 18.6 K/uL (4.3-10.9) H 08/22/18 18:50 Hgb 15.8 g/dL (13.6-17.9) D 08/22/18 18:50 Hct 46.8 % (39.6-49.0) D 08/22/18 18:50 Plt Count 288 K/uL (152-406) D 08/22/18 18:50 PT 11.7 SECONDS (9.5-12.5) 08/22/18 09:10 INR 0.99 08/22/18 09:10 Sodium 141 mmol/L (136-145) 08/22/18 18:50 Potassium 4.0 mmol/L (3.5-5.1) 08/22/18 18:50 BUN 33 mg/dL (7-18) H 08/22/18 18:50 Creatinine 1.20 mg/dL (0.55-1.3) D 08/22/18 18:50 Glucose 103 mg/dL (74-106) 08/22/18 18:50 Magnesium 3.6 mg/dL (1.8-2.4) H* 08/22/18 09:10 Total Bilirubin 0.5 mg/dL (0.2-1.0) 08/22/18 09:10 AST 19 U/L (15-37) 08/22/18 09:10 ALT 32 U/L (12-78) 08/22/18 09:10 Alkaline Phosphatase 124 U/L (45-117) H 08/22/18 09:10 Home Medications: Dextroamphetamine/Amphetamine [Adderall Xr 30 mg Capsule] 30 mg PO DAILY Diet: Regular Activity: Ad vicente
[2018-08-23] MEDS ORDERED: ENOXAPARIN 30 MG/0.3 ML SQ SCH (09:00)
--- NOTE | 2018-08-23 11:36 | EKG ---
Test Date: 2018-08-22 Test Time: 09:21:50 Cabin Outfitter: KRISHNA MEASUREMENT RESULTS: Intervals: Rate: 90 HI: 146 QRSD: 82 QT: 368 QTc: 450 [place]: P: 55 HI: 146 QRS: 43 T: 56 INTERPRETIVE STATEMENTS: Normal sinus rhythm Normal ECG No previous ECG available for comparison Electronically Signed On 08-23-18 07:38:27 CDT by Shola Navarro
== END 2018-08-23 01:30 | disposition home or self-care (01) | DRG 684 ==
LOC: ER 08:43 → ERHOLD 11:05 → 2ND 12:47
PROVIDERS: ADMIT Family Medicine; ATTEND Family Medicine
DX: N17.9 Acute kidney failure, unspecified (principal); E86.0 Dehydration; X30.XXXA Exposure to excessive natural heat, initial encounter; T67.5XXA Heat exhaustion, unspecified, initial encounter; Y92.9 Unspecified place or not applicable; Y99.0 Civilian activity done for income or pay; F17.210 Nicotine dependence, cigarettes, uncomplicated; F98.8 Other specified behavioral and emotional disorders with onset usually occurring in childhood and adolescence; Z72.89 Other problems related to lifestyle
CPT/HCPCS: 36415; 71045; 76770; 80048; 80076; 80307; 81003; 82550; 82553; 83735; 83880; 84145; 84484; 85025; 85610; 87040; 93005; 96361; 96374; 96375; 99285; J0696; J2405; J7030

== ENCOUNTER 2018-09-05 11:28 | Emergency (ER) | payer SELFPAY ==
--- NOTE | 2018-09-05 11:42 | ER ---
Nurse's Notes [facility] Name: Grayson Liz Age: 42 yrs Sex: Male : 1975 Arrival Date: 09/05/2018 Time: 11:30 Bed Waiting Private MD: Diagnosis: Pain in right toe(s) Presentation: 09/05 11:31 Presenting complaint: Patient states: i have an overlap, my 2nd toe lap over the big hj toe of my R foot; its hard to walk now;. Transition of care: patient was not received from another setting of care. Onset of symptoms was September 05, 2018. Risk Assessment: Do you want to hurt yourself or someone else? Patient reports no desire to harm self or others. Initial Sepsis Screen: Does the patient meet any 2 criteria? No. Patient's initial sepsis screen is negative. Does the patient have a suspected source of infection? No. Patient's initial sepsis screen is negative. Care prior to arrival: None. 11:31 Method Of Arrival: Ambulatory 11:31 Acuity: LAURA 4 hj Triage Assessment: 11:47 General: Appears in no apparent distress. uncomfortable, Behavior is calm, cooperative, hj appropriate for age. Pain: Complains of pain in right foot and right second toe. Historical: - Allergies: 11:32 NKA; hj - Home Meds: 11:48 Adderall XR Oral [Active]; hj - PMHx: 11:32 ADD/ADHD; hj - PSHx: 11:32 Hernia repair; Tonsillectomy; hj - Immunization history:: Adult Immunizations not immunized. - Social history:: Smoking status: Patient/guardian denies using tobacco, Patient/guardian denies using alcohol. - Ebola Screening: : Patient negative for fever greater than or equal to 101.5 degrees Fahrenheit, and additional compatible Ebola Virus Disease symptoms Patient denies exposure to infectious person Patient denies travel to an Ebola-affected area in the 21 days before illness onset. Screenin:47 Abuse screen: Denies threats or abuse. Denies injuries from another. Nutritional hj screening: No deficits noted. Tuberculosis screening: No symptoms or risk factors identified. Fall Risk None identified. Vital Signs: 11:32 BP 138 / 82; Pulse 88; Resp 18; Temp 98.2(TE); Pulse Ox 100% on R/A; Weight 79.38 kg; hj Height 5 ft. 11 in. (180.34 cm); Pain 10/10; 11:32 Body Mass Index 24.41 (79.38 kg, 180.34 cm) ED Course: 11:30 Patient arrived in ED. mr 11:32 Triage completed. hj 11:33 Arm band placed on left wrist. hj 11:36 Benny Wells MD is Attending Physician. ps1 11:41 Bladimir Campa DPM is Referral Physician. ps1 11:47 Patient has correct armband on for positive identification. Bed in low position. Call hj light in reach. Side rails up X 1. 11:48 No provider procedures requiring assistance completed. Patient did not have IV access hj during this emergency room visit. Administered Medications: No medications were administered Outcome: 11:42 Discharge ordered by MD. ps1 11:48 Discharged to home ambulatory. hj 11:48 Condition: stable 11:48 Discharge instructions given to patient, Instructed on discharge instructions, follow up and referral plans. medication usage, Demonstrated understanding of instructions, follow-up care, medications, Prescriptions given X 2. 11:48 Patient left the ED. Signatures: Monse Scanlon mr BolesBrandon, RN RN Benny Wells MD MD ps1 Corrections: (The following items were deleted from the chart) 11:34 11:32 Pulse 88bpm; Resp 18bpm; Pulse Ox 100% RA; Temp 98.2F Temporal; 79.38 kg; Height hj 5 ft. 11 in.; BMI: 24.4; Pain 10/10; hj
--- NOTE | 2018-09-05 11:42 | EDPHYS ---
Physician Documentation [facility] Name: Grayson Liz Age: 42 yrs Sex: Male : 1975 Arrival Date: 09/05/2018 Time: 11:30 Bed Waiting Private MD: ED Physician Benny Wells HPI: 09/05 11:36 This 42 yrs old Male presents to ER via Ambulatory with complaints of Foot ps1 Pain. 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 Patient is ps1 complaining of pain. States that it now hurts to work and worse with ambulation. This is chronic for many years. No ulceration or signs of cellulitis. . Historical: - Allergies: 11:32 NKA; hj - Home Meds: 11:48 Adderall XR Oral [Active]; hj - PMHx: 11:32 ADD/ADHD; hj - PSHx: 11:32 Hernia repair; Tonsillectomy; hj - Immunization history:: Adult Immunizations not immunized. - Social history:: Smoking status: Patient/guardian denies using tobacco, Patient/guardian denies using alcohol. - Ebola Screening: : Patient negative for fever greater than or equal to 101.5 degrees Fahrenheit, and additional compatible Ebola Virus Disease symptoms Patient denies exposure to infectious person Patient denies travel to an Ebola-affected area in the 21 days before illness onset. ROS: 11:36 MS/extremity: Positive for deformity, pain, chronic overgrown congenital deformity. ps1 11:36 Constitutional: Negative for fever, chills, and weight loss, Cardiovascular: Negative for chest pain, palpitations, and edema, Respiratory: Negative for shortness of breath, cough, wheezing, and pleuritic chest pain, Abdomen/GI: Negative for abdominal pain, nausea, vomiting, diarrhea, and constipation, Skin: Negative for injury, rash, and discoloration, Neuro: Negative for headache, weakness, numbness, tingling, and seizure. Exam: 11:36 Constitutional: This is a well developed, well nourished patient who is awake, alert, ps1 and in no acute distress. Head/Face: Normocephalic, atraumatic. Eyes: Pupils equal round and reactive to light, extra-ocular motions intact. Lids and lashes normal. Conjunctiva and sclera are non-icteric and not injected. Cardiovascular: Regular rate and rhythm. No gallops, murmurs, or rubs. Normal PMI, no JVD. No pulse deficits. Respiratory: Lungs have equal breath sounds bilaterally, clear to auscultation and percussion. No rales, rhonchi or wheezes noted. No increased work of breathing, no retractions or nasal flaring. Neuro: Awake and alert, GCS 15, oriented to person, place, time, and situation. Cranial nerves II-XII grossly intact. Sensory grossly intact. 11:36 Musculoskeletal/extremity: Extremities: grossly normal except: noted in the right second toe: pain, overgrown with chronic appearing deformity. No obvious cellulitis.. Vital Signs: 11:32 BP 138 / 82; Pulse 88; Resp 18; Temp 98.2(TE); Pulse Ox 100% on R/A; Weight 79.38 kg; hj Height 5 ft. 11 in. (180.34 cm); Pain 10/10; 11:32 Body Mass Index 24.41 (79.38 kg, 180.34 cm) MDM: 11:36 Data reviewed: vital signs, nurses notes, and as a result, I will discharge patient. ED ps1 course: patient has a chronic deformity that is causing pain. Patient needs evaluation by podiatry for intervention. Home with anti-inflammatory meds. . 11:42 Patient medically screened. ps1 Administered Medications: No medications were administered Disposition: 09/05/18 11:42 Discharged to Home. Impression: Pain in right toe(s). - Condition is Stable. - Discharge Instructions: Musculoskeletal Pain. - Prescriptions for Anaprox DS 550 mg Oral Tablet - take 1 tablet by ORAL route every 12 hours As needed; 20 tablet. Medrol (Garrett) 4 mg Oral Tablets, Dose Pack - take 1 tablet by ORAL route as directed - follow package instructions; 1 packet. - Work release form, Medication Reconciliation Form, Thank You Letter, Antibiotic Education, Prescription Opioid Use form. - Follow up: Bladimir Campa DPM; When: As needed; Reason: Further diagnostic work-up, Recheck today's complaints, Continuance of care. - Problem is chronic. - Symptoms have worsened. Signatures: Brandon Boles RN RN Benny Wells MD MD ps1 Corrections: (The following items were deleted from the chart) 11:48 11:42 09/05/2018 11:42 Discharged to Home. Impression: Pain in right toe(s). Condition hj is Stable. Forms are Medication Reconciliation Form, Thank You Letter, Antibiotic Education, Prescription Opioid Use. Follow up: Bladimir Campa; When: As needed; Reason: Further diagnostic work-up, Recheck today's complaints, Continuance of care. Problem is chronic. Symptoms have worsened. ps1
== END 2018-09-05 11:48 | disposition home or self-care (01) ==
LOC: ER 11:28
DX: M79.674 Pain in right toe(s) (principal); F90.9 Attention-deficit hyperactivity disorder, unspecified type
CPT/HCPCS: 99282